=== PATIENT | female | born 1950 | race Caucasian/White ===

== ENCOUNTER 2018-07-10 14:33 | Emergency (ER) | payer MEDICARE ==
[2018-07-10 14:40] VITALS: BP 175/84; PULSE 106; RESP 20; TEMP 98; O2SAT 100
--- NOTE | 2018-07-10 16:32 | C.PDOC ---
History Of Present Illness 68 year old female presents to the ED for evaluation of constipation x3 days and rash to the face and chest 2-3 days ago. Patient reports accidentally putting 15 drops of Tresaderm into a glass of water for constipation relief, shortly after she developed the rash. Admits to passing gas. Denies abdominal pain, nausea, vomiting, fever chills, shortness of breath, and any other associated symptoms. Time Seen by Provider: 07/10/18 15:44 Chief Complaint (Nursing): Abnormal Skin Integrity History Per: Patient History/Exam Limitations: no limitations Onset/Duration Of Symptoms: Days Current Symptoms Are (Timing): Still Present Past Medical History Reviewed: Historical Data, Nursing Documentation, Vital Signs Vital Signs: Last Vital Signs Temp 98 F 07/10/18 14:39 Pulse 106 H 07/10/18 14:39 Resp 20 07/10/18 14:39 BP 175/84 H 07/10/18 14:39 Pulse Ox 100 07/10/18 14:39 - Medical History PMH: Diabetes, HTN, Hypercholesterolemia Family History: States: Unknown Family Hx - Social History Hx Tobacco Use: No Hx Alcohol Use: No Hx Substance Use: No - Immunization History Hx Tetanus Toxoid Vaccination: No Hx Influenza Vaccination: Yes Hx Pneumococcal Vaccination: No Review Of Systems Except As Marked, All Systems Reviewed And Found Negative. Constitutional: Negative for: Fever, Chills Respiratory: Negative for: Shortness of Breath Gastrointestinal: Positive for: Constipation. Negative for: Nausea, Vomiting, Abdominal Pain Skin: Positive for: Rash (to the face and chest. ) Physical Exam - Physical Exam Appears: Well, Non-toxic, No Acute Distress Skin: Warm, Dry, Rash (scant rash to face and chest.) Head: Atraumatic, Normacephalic Eye(s): bilateral: Normal Inspection Oral Mucosa: Moist Tongue: Normal Appearing, No Swelling Throat: Normal, No Erythema, No Exudate, No Other (swelling. ) Neck: Normal ROM, Supple Chest: Symmetrical Cardiovascular: Rhythm Regular, No Murmur Respiratory: Normal Breath Sounds, No Rales, No Rhonchi, No Wheezing Gastrointestinal/Abdominal: Normal Exam, Soft, No Tenderness Neurological/Psych: Oriented x3, Normal Speech ED Course And Treatment O2 Sat by Pulse Oximetry: 100 (RA) Pulse Ox Interpretation: Normal Medical Decision Making Medical Decision Making: Plan: -Benadryl Pepcid Progress/Update: Patient stable for discharge home. Prescribed Miralx and Benadryl. Advised to follow up in the ED if symptoms worsen. Disposition - Disposition Referrals: Salazar Davalos MD [Staff Provider] - Disposition: HOME/ ROUTINE Disposition Time: 16:25 Condition: STABLE Additional Instructions: Follow up with the medical doctor within 1-2 days. return if worsened. Prescriptions: DiphenhydrAMINE [Benadryl] 25 mg PO QID #28 cap Polyethylene Glycol 3350 [Miralax] 17 gm PO DAILY PRN #100 ml PRN Reason: Constipation Instructions: Constipation, Adult (DC) Forms: [employer] (Frisian) Print Language: SLOVENIAN - Clinical Impression Clinical Impression: Constipation - PA / [employer] / Resident Statement MD/DO has reviewed & agrees with the documentation as recorded. - Scribe Statement The provider has reviewed the documentation as recorded by the Scribe (Carmina Wilson) All medical record entries made by the Scribe were at my direction and personally dictated by me. I have reviewed the chart and agree that the record accurately reflects my personal performance of the history, physical exam, medical decision making, and the department course for this patient. I have also personally directed, reviewed, and agree with the discharge instructions and disposition.
== END 2018-07-10 16:39 | disposition home or self-care (01) ==
LOC: C.ER 14:33
DX: K59.00 Constipation, unspecified (principal); I10 Essential (primary) hypertension; E11.9 Type 2 diabetes mellitus without complications; E78.00 Pure hypercholesterolemia, unspecified